=== PATIENT | female | born 1985 | race Asian ===

== ENCOUNTER 2018-10-11 05:23 | Emergency (ER) | payer OTHER ==
[~2018-10-11] VITALS: Ht 165.1 cm; Wt 45.4 kg
[2018-10-11 05:30] VITALS: TEMP 98.1
[2018-10-11 06:03] LABS: PLATELET COUNT 297 K/uL (152-353)
[2018-10-11 06:07] LABS: POTASSIUM 4.1 mmol/L (3.6-5.2)
[2018-10-11 10:13] VITALS: BP 124/72
== END 2018-10-11 10:15 | disposition home or self-care (01) ==
LOC: ED 05:23
PROVIDERS: Emergency Medicine
DX: N83.202 Unspecified ovarian cyst, left side (principal); N83.201 Unspecified ovarian cyst, right side; K76.89 Other specified diseases of liver
CPT/HCPCS: 36415; 80053; 81000; 81025; 82150; 83690; 85027; 96374; 96376; 99284; J1885; J2175; Q9963